=== PATIENT | female | born 1985 | race Caucasian/White ===

== ENCOUNTER → 2021-02-06 | Outpatient (CLI) | payer OTHER | LOC: EXRD 07:47 | DX: E55.9 Vitamin D deficiency, unspecified (principal); E04.1 Nontoxic single thyroid nodule | CPT/HCPCS: 76536 ==

== ENCOUNTER → 2021-09-22 | Outpatient (CLI) | payer OTHER | LOC: ECHO 09-16 10:45 | DX: R07.9 Chest pain, unspecified (principal); R00.2 Palpitations; I08.1 Rheumatic disorders of both mitral and tricuspid valves | CPT/HCPCS: ECHO; 93306 ==